=== PATIENT | female | born 1995 | race Caucasian/White ===

== ENCOUNTER 2022-10-16 02:36 | Emergency (ER) | payer OTHER ==
[2022-10-16 02:56] VITALS: BP 123/78; PULSE 70; RESP 16; TEMP 98.4; BMI 22.0
[2022-10-16] MEDS ORDERED: KETOROLAC TROMETHAMINE 30 MG/1 ML VIAL IM ONE (03:02)
[2022-10-16] MEDS ORDERED: KETOROLAC TROMETHAMINE 30 MG/1 ML VIAL ONE (03:03)
== END 2022-10-16 03:24 | disposition home or self-care (01) ==
LOC: JER 02:36
PROC: 3E0233Z Introduction of Anti-inflammatory into Muscle, Percutaneous Approach (ICD-10-PCS; principal; 2022-10-16)
DX: K08.89 Other specified disorders of teeth and supporting structures (principal)
CPT/HCPCS: 99284-25